=== PATIENT | male | born 1950 | race Caucasian/White ===

== ENCOUNTER 2017-12-05 15:17 | Emergency (ER) | payer MEDICARE ==
[~2017-12-05] VITALS: Ht 177.8 cm; Wt 56.7 kg
[~2017-12-05 15:17] MED LIST: ALPR.5 PO; CITA20 PO; FAMO20 PO; LORA2 PO; PRIM50 PO
[2017-12-05] MEDS ORDERED: OXYC10ER (15:30)
[2017-12-05] MEDS ORDERED: MORP60ER PO (15:30)
[2017-12-05] MEDS ORDERED: ALPR.5 PO (15:31)
[2017-12-05] MEDS ORDERED: PRIM50 PO (15:32)
[2017-12-05] MEDS ORDERED: DEXA4 PO (15:32)
[2017-12-05] MEDS ORDERED: CITA20 PO (15:33)
[2017-12-05 16:07] LABS: BASOPHILS ABSOLUTE AUTO 0.06 K/mm3 (0.00-0.23); BASOPHILS PERCENT AUTO 1 % (0-2); EOSINOPHILS ABSOLUTE AUTO 0.15 K/mm3 (0.00-0.68); EOSINOPHILS PERCENT AUTO 2 % (0-6); Hematocrit 37.3 % (37.0-53.0); Hemoglobin 12.4 g/dL (13.5-17.5); IMMATURE GRAN ABSOLUTE AUTO 0.02 K/mm3 (0.00-0.10); IMMATURE GRAN PERCENT AUTO 0 % (0-1); LYMPHOCYTES ABSOLUTE AUTO 0.43 K/mm3 (0.84-5.20); LYMPHOCYTES PERCENT AUTO 7 % (21-46); MONOCYTES ABSOLUTE AUTO 0.69 K/mm3 (0.16-1.47); MONOCYTES PERCENT AUTO 11 % (4-13); Mean Corpuscular HGB Conc 33.2 g/dL (31.5-36.5); Mean Corpuscular Volume 99 fL (80-100); Mean Platelet Volume 8.6 fL (9.1-12.4); NEUTROPHILS PERCENT AUTO 79 % (41-73); Platelet Count 242 K/mm3 (150-400); RDW Coefficient Variation 14.6 % (11.7-14.2); Red Blood Cell Count 3.76 M/mm3 (4.30-5.90); White Blood Cell Count 6.35 K/mm3 (4.00-11.30)
[2017-12-05 16:28] LABS: Anion Gap 6 mmol/L (6-16); Blood Urea Nitrogen 12 mg/dL (8-24); Bun/Creatinine Ratio 19.9 (12.0-20.0); CO2, Blood 27 mmol/L (21-32); Chloride, Blood 104 mmol/L (98-108); Glomerular Filtration Rate >60 (60-); Glucose, Blood 117 mg/dL (70-99); Potassium, Blood 3.8 mmol/L (3.5-5.5); Sodium, Blood 137 mmol/L (136-145)
== END 2017-12-05 17:52 | disposition short-term general hospital (02) ==
LOC: ER 15:17
PROVIDERS: Emergency Medicine
DX: C79.51 Secondary malignant neoplasm of bone (principal); R29.818 Other symptoms and signs involving the nervous system; C80.1 Malignant (primary) neoplasm, unspecified; F17.200 Nicotine dependence, unspecified, uncomplicated; Z79.899 Other long term (current) drug therapy
CPT/HCPCS: 36415; 80048; 85025; 96374; 96375; 96376; 99285-25; J1100; J1170; J2405